=== PATIENT | female | born 1945 | race Caucasian/White ===

== ENCOUNTER → 2020-09-04 15:13 | Outpatient (CLI) | payer MEDICARE, OTHER, SELFPAY | PROVIDERS: PCP Physician Assistant; Referring Provider Physician Assistant; Visit Provider Physician Assistant | DX: R31.9 Hematuria, unspecified (principal) | CPT/HCPCS: 87077; 87086; 87186 ==

== ENCOUNTER 2024-09-16 21:52 | Emergency (ER) | payer MEDICARE, SELFPAY ==
[2024-09-16 22:01] VITALS: BP 138/72; PULSE 98; RESP 17; TEMP 36.9; O2SAT 97; BMI 25.7
[2024-09-16] MEDS: ACETAMINOPHEN 325 MG TABLET 650 MG PO (23:15)
--- NOTE | 2024-09-16 23:59 | ED.WOUNDLAC ---
HPI - Wound/Laceration General Chief Complaint: Wound/Laceration Stated Complaint: laceration on lt leg Time Seen by Provider: 09/16/24 23:50 Source: patient Mode of arrival: Ambulatory History of Present Illness HPI narrative: 79-year-old female cut her left anterior foreleg tripping onto a rock in her home yard about 4:00 p.m. today, arrived POV via [place] for suturing, as there is no after hours clinic on [facility] area. No other injuries recalled. Can not recall date of last tetanus but likely greater than 5 years. She has been able to walk around on the affected leg. Related Data Home Medications ?Medication ?Instructions ?Recorded ?Confirmed atorvastatin 10 mg tablet 10 mg PO BEDTIME 09/04/20 08/13/21 levothyroxine 100 mcg tablet 100 mcg PO DAILY 09/04/20 08/13/21 aspirin 81 mg tablet,delayed 81 mg PO DAILY 08/13/21 08/13/21 release (Adult Aspirin Regimen) Previous Rx's ?Medication ?Instructions ?Recorded cephalexin 500 mg capsule 500 mg PO QID 7 days #28 caps 09/17/24 Allergies Allergy/AdvReac Type Severity Reaction Status Date / Time Penicillins Allergy Intermediate Rash Verified 09/16/24 22:01 Sulfa (Sulfonamide Allergy Intermediate Rash Verified 09/16/24 22:01 Antibiotics) Patient History Social History Smoking Status: Smoker, status unknown Smoking Status: Smoker, status unknown Exam Narrative Exam Narrative: GENERAL: Well-developed patient, in mild distress. HEAD: Atraumatic. Normocephalic. EYES: Pupils equal round and reactive. Extraocular motions intact. No scleral icterus. No injection or drainage. ENT: Nose without bleeding, purulent drainage. Throat without erythema, tonsillar hypertrophy or exudate. Airway patent. NECK: Trachea midline. Non tender CARDIOVASCULAR: Regular rate and rhythm without murmurs, gallops, or rubs. RESPIRATORY: Clear to auscultation. Breath sounds equal bilaterally. No wheezes, rales, or rhonchi. GASTROINTESTINAL: Abdomen soft, non-tender, nondistended. EXTREMITIES: Laceration to mid distal 3rd junction left anterior tibia, angulated flap laceration a proximally 6 cm x 4 cm, partial check jeremy versus partial pizza shape. BACK: Nontender without deformity or crepitance. No flank tenderness. NEURO: AOx3. Motor functions grossly nonfocal. SKIN: No rash or erythema of visible areas Initial Vital Signs Initial Vital Signs: Vital Signs Temperature 98.4 F 09/16/24 22:01 Pulse Rate 98 H 09/16/24 22:01 Respiratory Rate 17 09/16/24 22:01 Blood Pressure 138/72 09/16/24 22:01 Pulse Oximetry 97 09/16/24 22:01 Oxygen Delivery Method Room Air 09/16/24 22:01 Procedures Laceration Repair Laceration 1: Time of procedure: 00:47 Side (If applicable): left Size (cm): 10 Description: flap (6x4 angulated laceration, medial portion 4-5mm depth, lateral portion 1-2mm depth) Depth: simple, single layer Local Anesthetic: lidocaine 1% and bupivacaine 0.25% Amount of anesthesia used (mL): 10 Pre-repair: irrigated extensively Skin layer closed with: nylon Skin layer suture size: 4-0 Number of sutures: 17 Technique: simple, interrupted Course Orders Ordered: Discontinued Medications Acetaminophen (Acetaminophen 325 Mg Tablet) 650 mg PO NOW ONE Stop: 09/16/24 23:12 Last Admin: 09/16/24 23:15 Dose: 650 mg Documented By: VANESSA Hydrocodone Bitart/Acetaminophen (Hydrocodone/Acet 5/325 Tablet) 1 tab PO NOW ONE Stop: 09/17/24 00:45 Last Admin: 09/17/24 01:02 Dose: 1 tab Documented By: VANESSA Hydrocodone Bitart/Acetaminophen (Hydrocodone/Acet 5/325 Prepack) 1 bottle MISC DIRECTED ONE Stop: 09/17/24 00:45 Last Admin: 09/17/24 01:02 Dose: 1 bottle Documented By: VANESSA Bacitracin (Bacitracin Oint 0.9 Gm Pckt) 1 applic TOP NOW ONE Stop: 09/17/24 00:53 Last Admin: 09/17/24 00:59 Dose: 1 applic Documented By: VANESSA Cephalexin HCl (Cephalexin 250 Mg Capsule) 500 mg PO NOW ONE Stop: 09/17/24 00:44 Last Admin: 09/17/24 01:02 Dose: 500 mg Documented By: VANESSA Diphtheria/Tetanus/Acell Pertussis (Tet,Diph,Pertuss(Acell),Vac/Pf 0.5 Ml Syringe) 0.5 ml IM .ONCE ONE Stop: 09/16/24 23:51 Last Admin: 09/17/24 01:02 Dose: 0.5 ml Documented By: VANESSA Vital Signs Vital signs: Vital Signs - 8 hr 09/16/24 22:01 09/17/24 01:43 Temperature 98.4 F Pulse Rate 98 H 74 Respiratory Rate 17 16 Blood Pressure 138/72 131/86 Pulse Oximetry 97 98 Oxygen Delivery Method Room Air Room Air MDM - Wound/Laceration MDM Narrative Medical decision making narrative: Laceration to the left anterior foreleg, able to be weight-bearing, laceration 4:00 p.m. earlier today. Doubt fracture given weight-bearing status. Flap laceration. Field block for wound cleansing then primary closure with sutures. See procedure note. Primary closure. Oral Keflex, prescription for further Keflex sent to her pharmacy. Wound check advised in the next couple of days. Wound dressed with antibiotic ointment and Xeroform nonstick with Kacie wrap. Wound check advised in 2 days with PCP. Suture removal likely in 7 days unless sentence symptoms of wound infection develop. Tetanus updated. Prescription sent to her pharmacy. Home pack hydrocodone dispensed to use if needed for pain control. Discharged home. Stable/improved. Return precautions discussed. Discharge Plan Departure Patient Disposition: Home Clinical Impression: Laceration of left leg Instructions: How to Care for a Laceration After Repair, DI for Laceration Repair Activity Restrictions/Additional Instructions: Laceration of the left leg sustained earlier today from a rock and your yard. Superficial laceration to the lateral aspect but 4-5 mm deeper medial aspect of the laceration that was somewhat check jeremy like in angulation. Seventeen interrupted sutures placed after local field block numbing medication and wound irrigation. You had been walking around on it, we did not suspect there was a tibial bone fracture, no x-rays done at this time. The lateral aspect that is very thin 1 mm laceration has an abrasion component, with a about 2 mm of exposed subcutaneous tissue that can not be completely cover without ripping the superficial overlying nearby skin. We gave antibiotic cephalexin by mouth to help prevent infection, with prescription sent to your pharmacy. Pain medication given and home pack provided for discharge of hydrocodone/acetaminophen. Tetanus update given. Wound check advised in clinic on Wednesday. Dressing applied with antibiotic ointment and nonstick Xeroform in Kacie wrap dressing. Return earlier to this/nearest emergency department for any change worsening symptoms or any concerns prior. Prescriptions: New cephalexin 500 mg capsule 500 mg PO QID 7 Days Qty: 28 0RF No Action aspirin [Adult Aspirin Regimen] 81 mg tablet,delayed release (DR/EC) 81 mg PO DAILY levothyroxine 100 mcg tablet 100 mcg PO DAILY atorvastatin 10 mg tablet 10 mg PO BEDTIME Referrals: Marilyn Gilliland PA-C [Primary Care Provider, Medical] Stand Alone Forms: Patient Portal/API
[2024-09-17] MEDS: BACITRACIN OINT 0.9 GM PCKT 1 APPLIC TOP (00:59)
[2024-09-17] MEDS: HYDROCODONE/ACET 5/325 TABLET 1 TAB PO (01:02)
[2024-09-17] MEDS: HYDROCODONE/ACET 5/325 PREPACK 1 BOTTLE MISC (01:02)
[2024-09-17] MEDS: TET,DIPH,PERTUSS(ACELL),VAC/PF 0.5 ML SYRINGE IM (01:02)
[2024-09-17 01:43] VITALS: BP 131/86; PULSE 74; RESP 16; O2SAT 98
== END 2024-09-17 01:09 | disposition home or self-care (01) ==
PROVIDERS: Emergency Provider Emergency Medicine; PCP Physician Assistant
DX: S81.812A Laceration without foreign body, left lower leg, initial encounter (principal); W01.118A Fall on same level from slipping, tripping and stumbling with subsequent striking against other sharp object, initial encounter; Z23 Encounter for immunization
CPT/HCPCS: 12004; 90471; 99283; 90715

== ENCOUNTER → 2024-09-19 15:23 | Outpatient (CLI) | payer MEDICARE, SELFPAY | PROVIDERS: Visit Provider Physician Assistant Medical | DX: S81.812D Laceration without foreign body, left lower leg, subsequent encounter (principal) | CPT/HCPCS: 87070; 87075; 87205 ==